=== PATIENT | male | born 1980 | race Two or more races ===

== ENCOUNTER 2025-09-29 16:33 | Inpatient (IN) | payer OTHER ==
[~2025-09-29] VITALS: Ht 172.7 cm; Wt 129.9 kg
[2025-09-29] MEDS: LORazepam 2MG/ML-1ML VIAL IV ONE (17:12)
[2025-09-29] MEDS: SODIUM CHLORIDE 0.9% 1,000 ML IV ONE ×2 (17:13→23:50)
[2025-09-29 17:17] LABS: Sodium 138 mmol/L (136-145)
[2025-09-29 17:18] LABS: Anion Gap 21 (5-15); Carbon Dioxide 21 mmol/L (20-31)
[2025-09-29 17:21] LABS: Calcium 8.4 mg/dL (8.7-10.4); Chloride 96 mmol/L (98-107); Potassium 3.4 mmol/L (3.5-5.1)
--- NOTE | 2025-09-29 17:21 | ED.PDOC ---
History of Present Illness HPI Comments 45 y/o morbidly obese M is BIBA for c/c of witnessed seizure. Per EMS personnel report, patient is a resident of alcohol rehabilitation facility and has a significant history of alcohol abuse and alcohol withdrawal seizures. Staff at facility called after patient had sudden onset of seizure-like activity that lasted 45-60 seconds in duration after consuming 1x shot of alcohol he was given, while being tapered off. On scene, patient was reported to remained poetical for 3-4x minutes prior to coming to and returning to his normal baseline. No reported trauma or signs of incontinence. Patient denies any further acute symptoms. Chief Complaint: Withdrawal Time Seen by MD: 16:45 Reviewed Notes: Nurses Notes, Car Unloader Helper Notes, Medications, Allergies Information Source: Patient, Emergency Med Personnel Mode of Arrival: EMS Severity: Moderate Timing: Hours Duration: Minutes Prehospital treatment: 12 Lead EKG, Accucheck, Online Tutor Past Medical History PAST MEDICAL HISTORY: Seizures Surgical History: Denies all surgeries Family History Family History: Unknown Social History Smoker: Non-Smoker Alcohol: Heavy Drugs: Denies Drug Use Lives In: Home Constitutional: denies: chills, diaphoresis, fatigue, fever, malaise, sweats, weakness, others EENTM: denies: blurred vision, double vision, ear bleeding, ear discharge, ear drainage, ear pain, ear ringing, eye pain, eye redness, hearing loss, mouth pain , mouth swelling, nasal discharge, nose bleeding, nose congestion, nose pain, photophobia, tearing, throat pain, throat swelling, voice changes, others Respiratory: denies: cough, hemoptysis, orthopnea, SOB at rest, shortness of breath, SOB with excertion, stridor, wheezing, others Cardiovascular: denies: chest pain, dizzy spells, diaphoresis, Dyspnea on exertion, edema, irregular heart beat, left arm pain, lightheadedness, palpitations, PND, syncope, others Gastrointestinal: denies: abdomen distended, abdominal pain, blood streaked bowels, constipated, diarrhea, dysphagia, difficulty swallowing, hematemesis, melena, nausea, poor appetite, poor fluid intake, rectal bleeding, rectal pain, vomiting, others Genitourinary: denies: burning, dysuria, flank pain, frequency, hematuria, incontinence, penile discharge, penile sore, pain, testicle pain, testicle swelling, urgency, others Neurological: reports: seizure; denies: dizziness, fainting, headache, left sided numbness, left sided weakness, numbness, paresthesia, pre-existing deficit, right sided numbness, right sided weakness, speech problems, tingling, tremors, weakness, others Musculoskeletal: denies: back pain, gout, joint pain, joint swelling, muscle pain, muscle stiffness, neck pain, others Integumetry: denies: bruises, change in color, change in hair/nails, dryness, laceration, lesions, lumps, rash, wounds, others Allergic/Immunocompromised: denies: Difficulty Healing, Frequent Infections, Hives, Itching, others Hematologic/Lymphatic: denies: anemia, blood clots, easy bleeding, easy bruising, swollen glands, others Endocrine: denies: excessive hunger, excessive sweating, excessive thirst, excessive urination, flushing, intolerance to cold, intolerance to heat, unexplained weight gain, unexplained weight loss, others Psychiatric: denies: anxiety, bipolar disorder, depression, hopeless, panic disorder, schizophrenia, sleepless, suicidal, others All Other Systems: Reviewed and Negative Physical Exam General Appearance: Moderate Distress, Other (The patient has alcohol on the breath) HEENT: Pharynx Normal, TMs Normal Neck: Full Range of Motion, Non-Tender, Normal, Normal Inspection Respiratory: Chest Non-Tender, Lungs Clear, No Accessory Muscle Use, No Respiratory Distress, Normal Breath Sounds Cardiovascular: No Edema, No JVD, No Murmur, No Gallop, Normal Peripheral Pulses, Regular Rate/Rhythm Breast Exam: Deferred Gastrointestinal: No Organomegaly, Non Tender, No Pulsatile Mass, Normal Bowel Sounds, Soft Genitalia: Deferred Pelvic: Deferred Rectal: Deferred Extremities: No calf tenderness, Normal capillary refill, No pedal edema Musculoskeletal : Apperance: Normal Neurologic: strategic sourcing consultant II-XII nml as Tested, Motor Weakness, Normal Affect, Normal Mood, No Sensory Deficits Cerebellar Function: Normal Reflexes: Normal Skin: Dry, Normal Color, Warm Lymphatic: No Adenopathy Was a procedure done? Was a procedure done?: No Differential Dx Considerations may include: alcohol withdrawal seizures, substance abuse, substance dependency, electrolyte imbalance, dehydration, among others X-Ray, Labs, Meds, VS Vital Signs Date Time Temp Pulse Resp B/P (MAP) Pulse Ox O2 Delivery O2 Flow Rate FiO2 09/29/25 16:38 98.9 93 18 151/95 93 98.9 Lab Test 09/29/25 16:58 Range/Units Sodium Level 138 136-145 mmol/L Potassium Level 3.4 L 3.5-5.1 mmol/L Chloride Level 96 L 98-107 mmol/L Carbon Dioxide Level 21 20-31 mmol/L Anion Gap 21 H 5-15 Blood Urea Nitrogen 5 L 9-23 mg/dL Creatinine 0.96 0.700-1.30 mg/dL Glomerular Filtration Rate Calc 100 >90 mL/min BUN/Creatinine Ratio 5.2 L 10.0-20.0 Serum Glucose 101 74-106 mg/dL Calcium Level 8.4 L 8.7-10.4 mg/dL Plasma/Serum Blood Alcohol 397.2 H <10 mg/dL Current Medications Medications (Trade) Dose Ordered Sig/Zahraa Route Start Time Stop Time Status Last Admin Sodium Chloride 1,000 ml @ 1,000 mls/hr Q1H ONCE IV 09/29/25 17:00 09/29/25 17:59 09/29/25 17:13 Lorazepam (Ativan Inj) 1 mg ONCE ONCE IV 09/29/25 17:00 09/29/25 17:01 DC 09/29/25 17:12 IV Hep-Lock was established The patient was given a 1 L bolus of normal saline The patient was given Ativan 1 mg IV push The alcohol level is 397.2 The chemistry panel is within normal limits Seizure precautions were placed on this patient The patient will be signed out to Dr. Plata Time of 1ST Reevaluation: 17:15 Reevaluation 1ST: Unchanged Patient Education/Counseling: Diagnosis, Treatment, Prognosis Family Education/Counseling: No Family Present SEPSIS Sepsis Screen Date sepsis recognized/suspect: Sep 29, 2025 Time Sepsis recognized/suspect: 1637 Recent Procedure: No On Antibiotic Therapy: No Respiratory Rate >20: No Heart Rate >90: Yes Temp<36 C (96.8 F) or >38.3 C: No SBP <90 or MAP <65 mmHG: No New Acute Mental Status Change: No Is the patient on CPAP, BIPAP,: No Physician Orders Heplock Iv (09/29/25 16:49) Online Tutor (09/29/25 16:49) Blood Pressure (09/29/25 16:49) Pulse Oximetry (09/29/25 16:49) Sodium Chloride 0.9% (09/29/25 17:00) Drug Screen (09/29/25 16:49) Vital Signs Date Time Temp Pulse Resp B/P (MAP) Pulse Ox O2 Delivery O2 Flow Rate FiO2 09/29/25 16:38 98.9 93 18 151/95 93 98.9 Medications Medications Dose Ordered Sig/Zahraa Route Start Time Stop Time Status Last Admin Dose Admin Lorazepam 1 mg ONCE ONCE IV 09/29/25 17:00 09/29/25 17:01 DC 09/29/25 17:12 Sodium Chloride 1,000 ml @ 1,000 mls/hr Q1H ONCE IV 09/29/25 17:00 09/29/25 17:59 09/29/25 17:13 Departure 1 Departure Time of Disposition: 17:47 Impression: Primary Impression: Alcohol withdrawal seizure Qualified Codes: F10.930 - Alcohol use, unspecified with withdrawal, uncomplicated; R56.9 - Unspecified convulsions Additional Impression: Alcohol intoxication Qualified Codes: F10.920 - Alcohol use, unspecified with intoxication, uncomplicated Disposition: 30 STILL A PATIENT Condition: Fair Critical Care Note Critical Care Time?: No Stability Stability form required: No Heart Score Heart Score: Heart Score Response (Comments) Value History N/A 0 EKG N/A 0 Age N/A 0 Risk Factors N/A 0 Troponin N/A 0 Total 0 I personally scribed for KATLIN VICTORIA MD ([email or web address]) on 09/29/25 at 17:21. Electronically submitted by Salomón Easley ([email or web address]). KATLIN VICTORIA MD Sep 29, 2025 17:21
[2025-09-29 17:23] LABS: Glucose 101 mg/dL (74-106)
[2025-09-29 17:24] LABS: BUN/Creatinine Ratio 5.2 (10.0-20.0); Blood Urea Nitrogen 5 mg/dL (9-23)
[2025-09-29] MEDS: fentaNYL CITRATE 100 MCG/2 ML VL ONE (19:22)
[2025-09-29 19:30] VITALS: PULSE 91; RESP 20; O2SAT 95
[2025-09-29] MEDS: ONDANSETRON HCL 4 MG/2 ML VIAL IV ONE ×2 (19:52→23:50)
[2025-09-29] MEDS: ONDANSETRON HCL 4 MG/2 ML VIAL ONE (19:53)
[2025-09-29] MEDS: THIAMINE HCL 100 MG TAB PO ONE (23:50)
[2025-09-30 00:02] LABS: Hematocrit 40.4 % (41.0-53.0); Hemoglobin 13.6 g/dL (13.5-17.5); Mean Corpuscular Hemoglobin 31.2 pg (28.0-32.0); Mean Corpuscular Volume 92.6 fL (80.0-100.0); Nucleated Red Blood Cells % 0.4 %
[2025-09-30 01:25] LABS: Lactic Acid w/Reflex 6.1 mmol/L (0.4-2.0)
[2025-09-30 01:34] LABS: Magnesium 1.3 mg/dL (1.6-2.6)
[2025-09-30] MEDS: SODIUM CHLORIDE 0.9% 1,000 ML IV ONE ×2 (01:49→04:33)
[2025-09-30] MEDS: MAGNESIUM SULFATE 1GM/100ML 100 ML IV ONE ×2 (01:49→05:35)
[2025-09-30] MEDS: LORazepam 2MG/ML-1ML VIAL IV ONE (01:49)
[2025-09-30 02:51] LABS: Amphetamine Screen, Urine Neg (NEGATIVE); Barbiturate Scree,Urine Neg (NEGATIVE); Benzodiazephine Screen, Urine Neg (NEGATIVE); Cannabinoid Screen, Urine Neg (NEGATIVE); Cocaine Screen, Urine Neg (NEGATIVE); Opiate Scree,Urine Neg (NEGATIVE); Phencyclidine Screen, Urine Neg (NEGATIVE)
[2025-09-30] MEDS ORDERED: HYDROmorphone HCL 2 MG/ML VL/or syr IV PRN (03:15)
[2025-09-30] MEDS: LACTATED RINGER'S 2,000 ML IV ONE (03:26)
--- NOTE | 2025-09-30 03:27 | DVHHPRES ---
History of Present Illness Resident Creating Document: SHADIA DANIELLE History of Present Illness Patient is a 45-year-old male with past medical history of alcohol abuse and alcohol withdrawal seizures, presented to [facility] ED with complaint of alcohol withdrawal. The patient reports a history of heavy alcohol use for over 20 years. He recently quit drinking about 14 months, but 2 months ago, following a divorce, he resumed alcohol consumption. This patient is a resident of an alcohol rehabilitation facility. Facility staff called after the patient experienced sudden onset of seizure-like activity lasting approximately 45-60 seconds following consumption of one shot of alcohol, which was given as part of a tapering regimen. On scene, the patient reportedly remained postictal for 3-4 minutes before regaining consciousness and returning to baseline. No trauma or signs of incontinence were noted. The patient denies any additional acute symptoms. On evaluation in the ED, patient is afebrile, tachycardia and hypotensive (139/99 mmHg). Initial labs show significant WBC 3, platelet 70, hypokalemia, magnesium 1.3, lactic acid 6.1 and anion gap 21. The patient was placed NPO, started on IV antibiotics and IV fluids. Patient is admitted for further evaluation and management. Past Medical History alcohol abuse, alcohol withdrawal seizures Past Surgical History: None Family History: None Smoke: # pack years ALCOHOL: heavy Drugs: None Lives: Other Review of Systems Review of Systems Constitutional: Fatigue, headache, dizziness Eyes: No Pain, No Vision change, No Conjunctivae inflammation, No Eyelid inflammation, No Other, Redness ENT: No Ear pain, No Ear discharge, No Nose pain, No Nose discharge, No Nose congestion, No Mouth pain, No Mouth swelling, No Throat pain, No Throat swelling, No Other Cardiovascular: No Chest Pain, Palpitations, No Orthopnea, No Paroxysmal No Dyspnea, No Edema, No Lt Headedness, No Other Respiratory: No Cough, No Dry, No Shortness of breath, No SOB with exertion, No Wheezing, No Hemoptysis, No Pleuritic Pain, No Sputum, No Other Gastrointestinal: Nausea, Vomiting, No Abdominal Pain, No Diarrhea, No Constipation, No Melena, No Hematochezia, No Other Genitourinary: No Dysuria, No Frequency, No Incontinence, No Hematuria, No Retention, No Other Musculoskeletal: No other, No neck pain, No shoulder pain, No arm pain, No back pain, No hand pain, No leg pain, No foot pain Skin: No Rash, No Lesions, No Jaundice, No Bruising, No Other Allergies: Coded Allergies: NO KNOWN ALLERGIES (Unverified , 09/29/25) Medications Current Medications Medications Dose Ordered Sig/Zahraa Route Start Time Stop Time Status Last Admin Dose Admin Cefepime HCl 50 ml @ 12.5 mls/hr Q8HR IV 09/30/25 06:00 Sodium Chloride 10 ml Q8HR IV 09/30/25 06:00 UNV Ondansetron HCl 4 mg Q4HP PRN IV 09/30/25 03:15 UNV Hydromorphone HCl 0.5 mg Q4HPRN PRN IV 09/30/25 03:15 UNV Thiamine HCl 100 mg DAILY IV 09/30/25 10:00 UNV Lorazepam 1 mg Q2H PRN IV 09/30/25 03:15 UNV Ceftriaxone Sodium 50 ml @ 100 mls/hr DAILY@09 IV 09/30/25 09:00 UNV Exam Vital Signs Vital Signs Date Time Temp Pulse Resp B/P (MAP) Pulse Ox O2 Delivery O2 Flow Rate FiO2 09/30/25 00:30 98.9 112 23 139/99 (112) 95 98.9 09/29/25 19:30 Room Air* 0 21 Exam General Appearance: Morbidly obese male. Cooperative. Well developed. Well nou rished. NAD Head Exam: Normal inspection Neck Exam: Normal inspection. Non-tender. Normal alignment Pulmonary/Respiratory: Chest non-tender. Clear bilateral breath sounds, no crackles, no wheezing. Cardiovascular/Chest: Regular rate and rhythm. No murmurs. No JVD. Peripheral Pulses: 2+ Radial (R). 2+ Radial (L). 2+ Pedal (R). 2+ Pedal (L) Abdominal Exam: Normal bowel sounds. Soft. normal abdomen, no visible veins, Nontender. No hepatospenomegaly. No masses Ankle Exam: Negative ankle edema Lower extremities: Negative lower extremity edema Neuro/Mental Status: A&O x4. Coherent. Postictal state resolved. Thoughts/Psych: Normal thought pattern. Appropriate mood and affect. Good judgement and insight Skin Exam: Normal inspection. Normal color. Warm. Dry Labs/Xrays Labs Test 09/30/25 01:43 09/29/25 23:59 09/29/25 23:50 09/29/25 16:58 Range/Units Lactic Acid Level 5.7 *H 0.4-2.0 mmol/L Magnesium Level 1.3 L 1.6-2.6 mg/dL Plasma/Serum Blood Alcohol 250.6 H <10 mg/dL Urine Opiates Screen Neg NEGATIVE Urine Fentanyl Screen Neg NEGATIVE Urine Barbiturates Screen Neg NEGATIVE Urine Phencyclidine Screen Neg NEGATIVE Urine Amphetamines Screen Neg NEGATIVE Urine Benzodiazepines Screen Neg NEGATIVE Urine Cocaine Screen Neg NEGATIVE Urine Cannabinoids Screen Neg NEGATIVE White Blood Count 3.0 L 4.4-10.8 10^3/uL Red Blood Count 4.37 L 4.5-5.90 10^6/uL Hemoglobin 13.6 13.5-17.5 g/dL Hematocrit 40.4 L 41.0-53.0 % Mean Corpuscular Volume 92.6 80.0-100.0 fL Mean Corpuscular Hemoglobin 31.2 28.0-32.0 pg Mean Corpuscular Hemoglobin Concent 33.8 32.0-36.0 g/dL Red Cell Distribution Width 16.4 H 11.8-14.3 % Platelet Count 70 L 140-450 10^3/uL Mean Platelet Volume 8.2 6.9-10.8 fL Neutrophils (%) (Auto) 74.6 37.0-80.0 % Lymphocytes (%) (Auto) 14.3 10.0-50.0 % Monocytes (%) (Auto) 9.6 0.0-12.0 % Eosinophils (%) (Auto) 0.1 0.0-7.0 % Basophils (%) (Auto) 1.4 0.0-2.0 % Neutrophils # (Auto) 2.2 1.6-8.6 10 ^3/uL Lymphocytes # (Auto) 0.4 0.4-5.4 10 ^3/uL Monocytes # (Auto) 0.3 0-1.3 10 ^3/uL Eosinophils # (Auto) 0 0-0.8 10 ^3/uL Basophils # (Auto) 0 0-0.2 10 ^3/uL Nucleated Red Blood Cells 0.4 % Sodium Level 138 136-145 mmol/L Potassium Level 3.4 L 3.5-5.1 mmol/L Chloride Level 96 L 98-107 mmol/L Carbon Dioxide Level 21 20-31 mmol/L Anion Gap 21 H 5-15 Blood Urea Nitrogen 5 L 9-23 mg/dL Creatinine 0.96 0.700-1.30 mg/dL Glomerular Filtration Rate Calc 100 >90 mL/min BUN/Creatinine Ratio 5.2 L 10.0-20.0 Serum Glucose 101 74-106 mg/dL Calcium Level 8.4 L 8.7-10.4 mg/dL B-Type Natriuretic Peptide 11.38 0-100 pg/mL SEPSIS Sepsis Screen Date sepsis recognized/suspect: Sep 29, 2025 Time Sepsis recognized/suspect: 1646 Recent Procedure: No On Antibiotic Therapy: No Respiratory Rate >20: No Heart Rate >90: Yes Temp<36 C (96.8 F) or >38.3 C: No SBP <90 or MAP <65 mmHG: No New Acute Mental Status Change: No Is the patient on CPAP, BIPAP,: No Physician Orders Chest Portable (09/30/25 02:46) Lactated Ringer's (09/30/25 03:00) Blood Culture (09/30/25 02:46) Cefepime 1gm/50ml (Maxipime 1gm/50ml) (09/30/25 06:00) Notify Md If Map <65 Or Bp<90 (09/30/25 02:46) If Map<65 Start Vasopressor (09/30/25 02:46) Sepsis Reassesment After Fluid (09/30/25 03:46) Admit (09/30/25 03:08) Allergies (09/30/25 03:08) Code Status (09/30/25 03:08) Sodium Chloride Lock (Saline Lock Ns) (09/30/25 06:00) Ondansetron Hcl (Zofran) (09/30/25 03:15) Complete Blood Count (09/30/25 04:00) Comprehensive Metabolic Panel (09/30/25 04:00) Npo (Nothing By Mouth) Diet (09/30/25 Breakfast) Echo 2d Mode Cardiac Dop (09/30/25 03:08) Condition: Fair (09/30/25 03:08) Stat Ekg For Chest Pain (09/30/25 03:08) Notify Md Of Changes From Base (09/30/25 03:08) Manager Managed Care For 24 Hours (09/30/25 03:08) Emergency Dysrhythmia Protocol (09/30/25 03:08) Rhythm Strips Once Every Shift (09/30/25 03:08) Hydromorphone Injection (Dilaudid Inject (09/30/25 03:15) Magnesium (09/30/25 04:00) Urinalysis (09/30/25 03:08) Electrocardigram (09/30/25 03:08) Hepatic Panel (09/30/25 03:08) Sodium Chloride 0.9% (09/30/25 03:15) Thiamine Inj (09/30/25 10:00) Multiple Vitamin Tablet (Mvi Tab) (09/30/25 03:15) Folic Acid Tablet (09/30/25 03:15) Lorazepam 2mg/Ml Inj (Ativan Inj) (09/30/25 03:15) Etoh Withdrawal Assessment (09/30/25 03:08) Etoh Withdrawal Assessment NOW (09/30/25 03:08) Urine Bacterial Culture (09/30/25 03:08) Ceftriaxone 1gm/50ml (Rocephin) (09/30/25 09:00) Ceftriaxone 1gm/50ml (Rocephin) (09/30/25 03:15) Vital Signs Date Time Temp Pulse Resp B/P (MAP) Pulse Ox O2 Delivery O2 Flow Rate FiO2 09/30/25 00:30 98.9 112 23 139/99 (112) 95 98.9 09/29/25 22:47 100 18 145/93 (110) 96 09/29/25 20:43 99 20 148/88 (108) 95 09/29/25 19:30 91 20 95 Room Air* 0 21 Laboratory Tests Test 09/29/25 16:58 09/29/25 23:59 09/30/25 01:43 White Blood Count 3.0 10^3/uL (4.4-10.8) L Lactic Acid Level 6.1 mmol/L (0.4-2.0) *H 5.7 mmol/L (0.4-2.0) *H Medications Medications Dose Ordered Sig/Zahraa Route Start Time Stop Time Status Last Admin Dose Admin Lorazepam 1 mg ONCE ONCE IV 09/29/25 17:00 09/29/25 17:01 DC 09/29/25 17:12 1 MG Lorazepam 1 mg ONCE ONCE IV 09/30/25 01:45 09/30/25 01:46 DC 09/30/25 01:49 1 MG Magnesium Sulfate/ Dextrose 100 ml @ 100 mls/hr ONCE ONCE IV 09/30/25 01:45 09/30/25 02:44 DC 09/30/25 01:49 100 MLS/HR Ondansetron HCl 4 mg ONCE ONCE IV 09/29/25 20:00 09/29/25 20:01 DC 09/29/25 19:52 4 MG Ondansetron HCl 4 mg ONCE ONCE IV 09/29/25 23:45 09/29/25 23:46 DC 09/29/25 23:50 4 MG Sodium Chloride 1,000 ml @ 1,000 mls/hr Q1H ONCE IV 09/29/25 17:00 09/29/25 17:59 DC 09/29/25 17:13 1,000 MLS/HR Sodium Chloride 1,000 ml @ 1,000 mls/hr Q1H ONCE IV 09/29/25 23:45 09/30/25 00:44 DC 09/29/25 23:50 1,000 MLS/HR Sodium Chloride 1,000 ml @ 1,000 mls/hr Q1H ONCE IV 09/30/25 01:30 09/30/25 02:29 DC 09/30/25 01:49 1,000 MLS/HR Thiamine HCl 100 mg ONCE ONCE PO 09/29/25 23:45 09/29/25 23:46 DC 09/29/25 23:50 100 MG Assessment/Plan Assessment/Plan Alcohol intoxication Alcohol withdrawal Sepsis due to unknown origin Chest X-ray: No acute cardiopulmonary process identified. Serum alcohol: 397.2 > 250.6 CIWA score: 24 Cefepime 2 GM IV q8h Lorazepam 1 MG IV q2h prn Thiamine 100 MG IV daily Folic acid Magnesium rider IV once MVI 1 TAB Zofran 4 MG IV q4h IV NS 150 MLS/Hr one IV NS 1,000 MLS/HR one Hepatic panel UA and UDS Mg Echocardiogram ordered EKG Blood culture Urine bacterial culture pain management with Dilaudid 0.5 MG IV q4h prn Afib with RVR secondary to alcohol withdrawal evidence in EKG 1 dose Diltiazem Monitor tele for rhythm and rate Hypokalemia Potassium Effervesent Tab 50 MEQ PO once Hypomagnesemia Monitor Magnesium rider IV once Diet: NPO Goals of care: Full code, discussed for >30 minutes on 09/30/25 Plan discussed with patient Plan discussed with Dr. Hightower Plan discussed with: Patient My Orders Orders - SHADIA DANIELLE RESIDENT Procedure Category Date Status Time Admit ADMIT 09/30/25 Transmitted 03:08 Allergies BLANCO 09/30/25 In Process 03:08 Code Status CODE 09/30/25 Transmitted 03:08 Sodium Chloride Lock PHA 09/30/25 Logged (Saline Lock Ns) 06:00 Ondansetron Hcl PHA 09/30/25 Logged (Zofran) 03:15 Complete Blood Count LAB 09/30/25 Logged 04:00 Comprehensive LAB 09/30/25 Logged Metabolic Panel 04:00 Npo (Nothing By DIET 09/30/25 Transmitted Mouth) Diet Breakfast Echo 2d Mode Cardiac US 09/30/25 Logged DOP 03:08 Condition: Fair [facility] 09/30/25 In Process 03:08 Stat Ekg For Chest [facility] 09/30/25 In Process Pain 03:08 Notify Md Of Changes [facility] 09/30/25 In Process From Base 03:08 Manager Managed Care For [facility] 09/30/25 In Process 24 Hours 03:08 Emergency Dysrhythmia [facility] 09/30/25 In Process Protocol 03:08 Rhythm Strips Once [facility] 09/30/25 In Process Every Shift 03:08 Hydromorphone PHA 09/30/25 Logged Injection (Dilaudid 03:15 Magnesium LAB 09/30/25 Logged 04:00 Urinalysis LAB 09/30/25 Logged 03:08 Electrocardigram EKG 09/30/25 Logged 03:08 Hepatic Panel LAB 09/30/25 Logged 03:08 Sodium Chloride 0.9% PHA 09/30/25 Logged 03:15 Thiamine Inj PHA 09/30/25 Logged 10:00 Multiple Vitamin PHA 09/30/25 Logged Tablet (Mvi Tab) 03:15 Folic Acid Tablet PHA 09/30/25 Logged 03:15 Lorazepam 2mg/Ml Inj PHA 09/30/25 Logged (Ativan Inj) 03:15 Etoh Withdrawal BLANCO 09/30/25 In Process Assessment 03:08 Etoh Withdrawal BLANCO 09/30/25 In Process Assessment 03:08 Urine Bacterial VLADIMIR 09/30/25 Logged Culture 03:08 Ceftriaxone 1gm/50ml PHA 09/30/25 Logged (Rocephin) 09:00 Ceftriaxone 1gm/50ml PHA 09/30/25 Logged (Rocephin) 03:15 Date of Service: Sep 30, 2025 Billing Provider: KARLI HIGHTOWER MD Common Visit Codes: [id number] INP/OBS CARE (HIGH) Secondary Visit Codes: [id number] CARE PLAN 30 MINUTES SHADIA DANIELLE RESIDENT Sep 30, 2025 03:27 VERO SYKES RESIDENT Sep 30, 2025 05:32
--- NOTE | 2025-09-30 03:28 | DVH ---
MEDICAL RECORDS NUMBER: [id number] PROCEDURE: XY CHEST PORTABLE DATE: 09/30/2025 02:59 AM HISTORY: sepsis Views:1 COMPARISON: None FINDINGS/IMPRESSION: Lungs: Allowing for overlying soft tissues, the lungs appear grossly clear. Mediastinum: Mediastinal structures appear unremarkable... Skeletal: The skeletal structures appear unremarkable.
[2025-09-30] MEDS: MULTIPLE VITAMIN TAB PO ONE (03:57)
[2025-09-30] MEDS: FOLIC ACID 1 MG TAB PO ONE (03:57)
[2025-09-30] MEDS: POTASSIUM EFFERVESENT TAB 25 MEQ PO ONE (04:17)
[2025-09-30] MEDS: LORazepam 2MG/ML-1ML VIAL IV PRN (04:33)
[2025-09-30] MEDS: D5W/SOD CHLO 0.9% 1,000 ML IV ONE (05:07)
[2025-09-30] MEDS: dilTIAZem 25 MG/5 ML VIAL IV ONE (05:42)
[2025-09-30] MEDS ORDERED: SODIUM CHLOR 0.9% PF (SALINE LOCK) 10ML VIAL/SYR IV SCH (06:00)
--- NOTE | 2025-09-30 06:05 | ECG ---
[facility] Test Date: 2025-09-30 Test Time: 05:23:52 Pat Name: RIANA MARTINES Department: ED Room: 0206T Gender: M Hospitality Manager: stacie : 1980 Requested By: SHADIA YOU Order Number: [id number] Reading MD: Beto Pennington Measurements Intervals [place] Rate: 152 P: 0 UT: 0 QRS: 40 QRSD: 91 T: -7 QT: 292 QTc: 465 Interpretive Statements Atrial fibrillation Borderline T abnormalities, inferior leads Electronically Signed On 10-03-2025 17:49:42 PST by Beto Pennington Please click the below link to view image of tracing.
[2025-09-30] MEDS: CEFEPIME 1GM/50ML 50 ML IV SCH (06:12)
[2025-09-30] MEDS: MORPHINE SULFATE INJ 2 MG/ml SYRG IM ONE (06:26)
[2025-09-30 06:30] LABS: Nucleated Red Blood Cells % 0.1 %
[2025-09-30 06:33] LABS: Hematocrit 34.7 % (41.0-53.0); Hemoglobin 12.1 g/dL (13.5-17.5); Mean Corpuscular Hemoglobin 32.7 pg (28.0-32.0); Mean Corpuscular Volume 93.7 fL (80.0-100.0)
[2025-09-30 06:44] LABS: Anion Gap 23 (5-15); BUN/Creatinine Ratio 6.5 (10.0-20.0); Glucose 74 mg/dL (74-106); Potassium 3.8 mmol/L (3.5-5.1); Total Protein 6.9 g/dL (5.7-8.2)
[2025-09-30 06:45] LABS: Albumin 3.6 g/dL (3.2-4.8)
[2025-09-30 06:46] LABS: Alanine Aminotransferase 88 U/L (7-40); Alanine Aminotransferase 89.0 U/L (7-40); Alkaline Phosphatase 127 U/L (46-116); Alkaline Phosphatase 127.0 U/L (46-116); Bilirubin, Total 4.2 mg/dL (0.2-1.0); Blood Urea Nitrogen 6 mg/dL (9-23); Calcium 7.8 mg/dL (8.7-10.4); Carbon Dioxide 15 mmol/L (20-31); Chloride 97 mmol/L (98-107); Magnesium 1.5 mg/dL (1.6-2.6); Sodium 135 mmol/L (136-145); Total Protein 6.9 g/dL (5.7-8.2)
[2025-09-30 06:47] LABS: Albumin 3.6 g/dL (3.2-4.8)
[2025-09-30 06:49] LABS: Bilirubin, Direct 2.8 mg/dL (<0.3); Bilirubin, Total 4.3 mg/dL (0.2-1.0); Lactic Acid w/Reflex 6.5 mmol/L (0.4-2.0)
[2025-09-30] MEDS: METOPROLOL TARTRATE 1MG/1ML-5ML VIAL IV ONE (07:12)
[2025-09-30 08:00] VITALS: PULSE 102; RESP 22; O2SAT 90
[2025-09-30] MEDS: THIAMINE 100mg/ml INJ (200mg/2ml VIAL) IV SCH (11:20)
[2025-09-30] MEDS: FOLIC ACID 1 MG TAB PO SCH (11:21)
[2025-09-30] MEDS: ONDANSETRON HCL 4 MG/2 ML VIAL IV PRN (14:30)
--- NOTE | 2025-09-30 14:52 | DVHPN2 ---
Objective Vitals Vital Signs Date Time Temp Pulse Resp B/P (MAP) Pulse Ox O2 Delivery O2 Flow Rate FiO2 09/30/25 08:12 102 134/89 09/30/25 08:00 98.3 22 90 98.3 09/30/25 08:00 Room Air* 0 21 Intake/Output Intake and Output 09/30/25 07:00 Intake Total 1100 ml Balance 1100 ml Intake IV Total 1100 ml Medications Current Medications Medications Dose Ordered Sig/Zahraa Route Start Time Stop Time Status Last Admin Dose Admin Cefepime HCl 50 ml @ 12.5 mls/hr Q8HR IV 09/30/25 06:00 09/30/25 14:29 12.5 MLS/HR Ondansetron HCl 4 mg Q4HP PRN IV 09/30/25 03:15 09/30/25 14:30 4 MG Hydromorphone HCl 0.5 mg Q4HPRN PRN IV 09/30/25 03:15 Thiamine HCl 100 mg DAILY IV 09/30/25 10:00 09/30/25 11:20 100 MG Lorazepam 1 mg Q2H PRN IV 09/30/25 03:15 09/30/25 14:30 1 MG Folic Acid 1 mg DAILY PO 09/30/25 10:00 09/30/25 11:21 1 MG Chlordiazepoxide HCl 50 mg Q8H PO 09/30/25 04:30 09/30/25 20:31 09/30/25 14:29 50 MG Chlordiazepoxide HCl 50 mg Q12HR PO 10/01/25 10:00 10/01/25 22:01 Chlordiazepoxide HCl 25 mg Q12HR PO 10/02/25 10:00 10/02/25 22:01 Chlordiazepoxide HCl 25 mg QAM PO 10/03/25 07:00 10/03/25 07:01 Laboratory Results Laboratory Tests 09/30/25 06:02 Chemistry Test 09/29/25 16:58 09/29/25 23:59 09/30/25 06:02 Calcium Level 8.4 mg/dL (8.7-10.4) L 7.8 mg/dL (8.7-10.4) L Magnesium Level 1.3 mg/dL (1.6-2.6) L 1.5 mg/dL (1.6-2.6) L Albumin 3.6 g/dL (3.2-4.8) Total Protein 6.9 g/dL (5.7-8.2) Cardiac Markers Test 09/29/25 16:58 B-Type Natriuretic Peptide 11.38 pg/mL (0-100) LFT Test 09/30/25 06:02 Alanine Aminotransferase (ALT) 88 U/L (7-40) H Alkaline Phosphatase 127 U/L (46-116) H Aspartate Amino Transferase (AST) 307 U/L (13-40) H Direct Bilirubin 2.8 mg/dL (<0.3) H Total Bilirubin 4.2 mg/dL (0.2-1.0) H MADINA DUVALL MD Sep 30, 2025 14:52
--- NOTE | 2025-09-30 15:01 | DVHINCON2 ---
Date Seen: Sep 30, 2025 Referring Physician You Reason for Consultation Atrial Fibrillation History of Present Illness 45-year-old male with PMH for ETOH abuse, previous seizures during withdrawal presents to the hospital with alcohol withdrawal. Patient states that he has been sober for a while though is going through divorce and started drinking heavily again and was checking himself into a rehab facility when he started having increased withdrawal symptoms and was referred to come to the hospital. Patient denies any chest pain, palpitations. Upon evaluation in the ER patient had elevated heart rate on EKG review patient with shown atrial fibrillation with RVR at 152 beats per minute. Patient was given dose of diltiazem which improved heart rate patient ended up converting back to sinus tachycardia. Patient also found to have hypomagnesemia of with mg of 1.5, lactic acid trending 5.7, 6.5, 4.5. Elevated LFTs. Past Medical History As stated above Past Surgical History Denies previous cardiac surgeries Social History Heavy recurrent ETOH abuse. Denies illicit drug use or smoking tobacco. Allergies: Coded Allergies: NO KNOWN ALLERGIES (Unverified , 09/29/25) Current Medications Current Medications Medications (Trade) Dose Ordered Sig/Zahraa Route PRN Reason Start Time Stop Time Status Last Admin Cefepime HCl 50 ml @ 12.5 mls/hr Q8HR IV 09/30/25 06:00 09/30/25 14:29 Sodium Chloride (Saline Lock Ns) 10 ml Q8HR IV 09/30/25 06:00 09/30/25 05:09 DC Ondansetron HCl (Zofran) 4 mg Q4HP PRN IV NAUSEA / VOMITING 09/30/25 03:15 09/30/25 14:30 Hydromorphone HCl (Dilaudid Injection) 0.5 mg Q4HPRN PRN IV SEVERE PAIN (7-10 PAIN SCALE) 09/30/25 03:15 Thiamine HCl 100 mg DAILY IV 09/30/25 10:00 09/30/25 11:20 Lorazepam (Ativan Inj) 1 mg Q2H PRN IV ALCOHOL WITHDRAWAL SYMPTOMS 09/30/25 03:15 09/30/25 14:30 Ceftriaxone Sodium 50 ml @ 100 mls/hr DAILY@09 IV 09/30/25 09:00 09/30/25 03:47 DC Folic Acid 1 mg DAILY PO 09/30/25 10:00 09/30/25 11:21 Chlordiazepoxide HCl (Librium Capsule) 50 mg Q8H PO 09/30/25 04:30 09/30/25 20:31 09/30/25 14:29 Chlordiazepoxide HCl (Librium Capsule) 50 mg Q12HR PO 10/01/25 10:00 10/01/25 22:01 Chlordiazepoxide HCl (Librium Capsule) 25 mg Q12HR PO 10/02/25 10:00 10/02/25 22:01 Chlordiazepoxide HCl (Librium Capsule) 25 mg QAM PO 10/03/25 07:00 10/03/25 07:01 Review of Systems Constitutional: No: Fever, Chills, Sweats, Weakness, Malaise, Other Eyes: No: Pain, Vision change, Conjunctivae inflammation, Eyelid inflammation, Other, Redness ENT: No: Ear pain, Ear discharge, Nose pain, Nose discharge, Nose congestion, Mouth pain, Mouth swelling, Throat pain, Throat swelling, Other Respiratory: No: Cough, Dry, Shortness of breath, SOB with exertion, Wheezing, Hemoptysis, Pleuritic Pain, Sputum, Wheezing, Other Cardiovascular: ; No: Chest Pain Palpitations, Orthopnea, Paroxysmal Noc. Dyspnea, Edema, Lt Headedness, Other Gastrointestinal: No: Nausea, Vomiting, Abdominal Pain, Diarrhea, Constipation, Melena, Hematochezia, Other Genitourinary: No Dysuria, No Frequency, No Incontinence, No Hematuria, No Retention, No Other Musculoskeletal: neck pain; No: other, shoulder pain, arm pain, back pain, hand pain, leg pain, foot pain Skin: No: Rash, Lesions, Jaundice, Bruising, Other Neurological: Other (Dizziness, headache.); No: Weakness, Numbness, Incoordination, Change in speech, Confusion, Seizures Vital Signs Vital Signs Date Time Temp Pulse Resp B/P (MAP) Pulse Ox O2 Delivery O2 Flow Rate FiO2 09/30/25 08:12 102 134/89 09/30/25 08:00 98.3 22 90 98.3 09/30/25 08:00 Room Air* 0 21 Physical Exam General appearance: Ill-appearing, in no acute distress. HEENT: Exam shows: Normocephalic, atraumatic, PERRLA, EOMI Neck: Supple, no bruits Chest: Equal chest excursion bilaterally. Breath sounds normal-no rales or wheezes. Heart: Rhythm: Regular /irregular rate; tachycardia no murmur or gallop Abdomen: Exam shows: Soft, nontender, nondistended Musculoskeletal: No clubbing, no cyanosis, no lower extremity edema Dermatology: Skin warm, moist. Neurological: Exam shows: Alert and oriented x3, normal speech Available prior records, labs, EKG, rhythm strips reviewed and interpreted Labs/Diagnostic Data Labs Test 09/30/25 08:42 09/30/25 06:02 09/29/25 23:59 09/29/25 23:50 Range/Units Lactic Acid Level 4.5 *H 0.4-2.0 mmol/L White Blood Count 3.4 L 4.4-10.8 10^3/uL Red Blood Count 3.70 L 4.5-5.90 10^6/uL Hemoglobin 12.1 L 13.5-17.5 g/dL Hematocrit 34.7 #L 41.0-53.0 % Mean Corpuscular Volume 93.7 80.0-100.0 fL Mean Corpuscular Hemoglobin 32.7 H 28.0-32.0 pg Mean Corpuscular Hemoglobin Concent 34.9 32.0-36.0 g/dL Red Cell Distribution Width 17.1 H 11.8-14.3 % Platelet Count 58 L 140-450 10^3/uL Mean Platelet Volume 8.0 6.9-10.8 fL Neutrophils (%) (Auto) 81.2 H 37.0-80.0 % Lymphocytes (%) (Auto) 10.9 10.0-50.0 % Monocytes (%) (Auto) 7.2 0.0-12.0 % Eosinophils (%) (Auto) 0.0 0.0-7.0 % Basophils (%) (Auto) 0.7 0.0-2.0 % Neutrophils # (Auto) 2.7 1.6-8.6 10 ^3/uL Lymphocytes # (Auto) 0.4 0.4-5.4 10 ^3/uL Monocytes # (Auto) 0.2 0-1.3 10 ^3/uL Eosinophils # (Auto) 0 0-0.8 10 ^3/uL Basophils # (Auto) 0 0-0.2 10 ^3/uL Nucleated Red Blood Cells 0.1 % Sodium Level 135 L 136-145 mmol/L Potassium Level 3.8 3.5-5.1 mmol/L Chloride Level 97 L 98-107 mmol/L Carbon Dioxide Level 15 L 20-31 mmol/L Anion Gap 23 H 5-15 Blood Urea Nitrogen 6 L 9-23 mg/dL Creatinine 0.92 0.700-1.30 mg/dL Glomerular Filtration Rate Calc 105 >90 mL/min BUN/Creatinine Ratio 6.5 L 10.0-20.0 Serum Glucose 74 74-106 mg/dL Calcium Level 7.8 L 8.7-10.4 mg/dL Magnesium Level 1.5 L 1.6-2.6 mg/dL Total Bilirubin 4.2 H 0.2-1.0 mg/dL Direct Bilirubin 2.8 H <0.3 mg/dL Aspartate Amino Transferase (AST) 307 H 13-40 U/L Alanine Aminotransferase (ALT) 88 H 7-40 U/L Alkaline Phosphatase 127 H 46-116 U/L Total Protein 6.9 5.7-8.2 g/dL Albumin 3.6 3.2-4.8 g/dL Plasma/Serum Blood Alcohol 250.6 H <10 mg/dL Urine Opiates Screen Neg NEGATIVE Urine Fentanyl Screen Neg NEGATIVE Urine Barbiturates Screen Neg NEGATIVE Urine Phencyclidine Screen Neg NEGATIVE Urine Amphetamines Screen Neg NEGATIVE Urine Benzodiazepines Screen Neg NEGATIVE Urine Cocaine Screen Neg NEGATIVE Urine Cannabinoids Screen Neg NEGATIVE Test 09/29/25 16:58 Range/Units B-Type Natriuretic Peptide 11.38 0-100 pg/mL Assessment * Episode of atrial fibrillation with RVR - converted back to sinus tachycardia, likely episodic in setting of alcohol withdrawal. Continue monitoring. Monitoring replace electrolytes keep K greater than 4 and mg greater than 2. Check echocardiogram. If recurrent decision to be made to started on anticoagulation therapy as patient has thrombocytopenia. * ETOH withdrawal, seizures-on CIWA protocol. Management per primary team. * Sinus tachycardia, HTN - continue monitoring, IV p.r.n. metoprolol. * Sepsis,- on IV antibiotics, blood cultures pending. Management per primary team. * Elevated LFTs - estimate per primary team. Case Discussed with Dr Mckeon. Continue telemetry monitoring. IV metoprolol as needed. Follow up echocardiogram. Critical care, time spent: 40 minutes This medical document was created using an electronic medical record system with voice recognition software and computerized dictation system. Although this document has been carefully reviewed, there might still be some phonetic and typographical errors. Occasional wrong-word or ``sound-alike substitutions may have occurred due to the inherent limitations of voice recognition software. These areas are purely typographical due to imperfections of the software programs and do not reflect any compromise in the patient's medical care. Please read the chart carefully and recognize, using context, where these substitutions have occurred. Thank you for allowing me to participate in the management of this patient. The treatment plan was discussed with and agreed upon by patient/family including requesting consultants and ordering of imaging/procedures. Plan discussed with: Patient NYHA Physical activity limitations: Class1(None)absent sob, Date of Service: Sep 30, 2025 Billing Provider: BART CASTRO Cardiology Common Codes: [id number] INP/OBS CARE (High), [id number] CARE 30-74 MIN BART CASTRO Sep 30, 2025 15:01
--- NOTE | 2025-09-30 15:55 | DVHSR ---
APPROVED REPORT EXAM: LIMITED Two-dimensional and M-mode echocardiogram with Doppler and color Doppler. Blood Pressure: 134/89 mmHg INDICATION Chest Pain RISK FACTORS Height: 5' 7", Weight: 260 DIMENSIONS LVDd 5.2 (3.8-5.7cm) LA (2D) 3.8 (1.9-4.0cm) Aortic Root 3.5 (2.0-3.7cm) LVDs 3.7 (2.5-4.0cm) LA (MM) (1.9-4.0cm) Aortic Cusp Exc 2.0 (1.5-2.0cm) EF (%) 55.0 (55-70%) Rt. Atrium 3.8 (1.9-4.0cm) Asc. Aorta cm IVSd 0.9 (0.7-1.1cm) RV (D) (1.8-2.4cm) PWd 1.1 (0.7-1.1cm) Mitral Valve Mitral Mitral Stenosis E wave 0.70m/s MV Mean GR. mmHg A wave 0.80m/s MV Peak GR. mmHg E/A ratio 0.9 2D MVA cm2 Aortic Valve Aortic Valve Aortic Stenosis V1 1.20m/s AO Mean GR. 9mmHg V2 2.00m/s AO Peak GR. 16mmHg LVOT Diameter 2.6 (1.8-2.4cm) Doppler HANK 3.18cm2 Pulmonic Valve V2 1.10m/s Other Information Quality : Technically Limited Rhythm : Technically limited study due to body habitus, patient puking. Conclusion MODERATELY DILATED RV AND RA DYSKINESIS OF IVS HIGHLY SUGGEST CHRONIC OR ACUTE RV STRAIN PATTERN LV EF IS 60% AND IS NORMAL NORMAL VALVES NO EFFUSION
[2025-09-30 16:05] LABS: Urine Protein, UAD 2+ (Negative)
[2025-09-30 18:35] VITALS: PULSE 108; RESP 20; O2SAT 94
[2025-09-30 18:36] VITALS: BP 119/78; PULSE 108; RESP 20; TEMP 98.4; O2SAT 94
[2025-09-30 20:28] VITALS: PULSE 101
[2025-09-30 21:00] VITALS: BP 140/91; PULSE 116; RESP 20; TEMP 100; O2SAT 97
--- NOTE | 2025-09-30 22:50 | DVHINCON2 ---
Date Seen: Sep 30, 2025 Referring Physician You Reason for Consultation Atrial Fibrillation History of Present Illness This is a 45-year-old male with a PMH of ETOH abuse, previous seizures during withdrawal presents to the hospital with alcohol withdrawal. Patient states that he has been sober for a while though is going through divorce and started drinking heavily again and was checking himself into a rehab facility when he started having increased withdrawal symptoms and was referred to come to the hospital. Patient denies any chest pain, palpitations. Upon evaluation in the ER patient had elevated heart rate on EKG review patient with shown atrial fibrillation with RVR at 152 beats per minute. Patient was given dose of diltiazem which improved heart rate patient ended up converting back to sinus tachycardia. Patient also found to have hypomagnesemia of with mg of 1.5, lactic acid trending 5.7, 6.5, 4.5. Elevated LFTs. Chest x-ray showed NAD. Patient was admitted to the hospital. I am asked to consult on this patient. Past Medical History As stated above Past Surgical History Denies previous cardiac surgeries Allergies: Coded Allergies: NO KNOWN ALLERGIES (Unverified , 09/29/25) Current Medications Current Medications Medications (Trade) Dose Ordered Sig/Zahraa Route PRN Reason Start Time Stop Time Status Last Admin Cefepime HCl 50 ml @ 12.5 mls/hr Q8HR IV 09/30/25 06:00 09/30/25 14:29 Sodium Chloride (Saline Lock Ns) 10 ml Q8HR IV 09/30/25 06:00 09/30/25 05:09 DC Ondansetron HCl (Zofran) 4 mg Q4HP PRN IV NAUSEA / VOMITING 09/30/25 03:15 09/30/25 14:30 Hydromorphone HCl (Dilaudid Injection) 0.5 mg Q4HPRN PRN IV SEVERE PAIN (7-10 PAIN SCALE) 09/30/25 03:15 Thiamine HCl 100 mg DAILY IV 09/30/25 10:00 09/30/25 11:20 Lorazepam (Ativan Inj) 1 mg Q2H PRN IV ALCOHOL WITHDRAWAL SYMPTOMS 09/30/25 03:15 09/30/25 14:30 Ceftriaxone Sodium 50 ml @ 100 mls/hr DAILY@09 IV 09/30/25 09:00 09/30/25 03:47 DC Folic Acid 1 mg DAILY PO 09/30/25 10:00 09/30/25 11:21 Chlordiazepoxide HCl (Librium Capsule) 50 mg Q8H PO 09/30/25 04:30 09/30/25 20:31 09/30/25 14:29 Chlordiazepoxide HCl (Librium Capsule) 50 mg Q12HR PO 10/01/25 10:00 10/01/25 22:01 Chlordiazepoxide HCl (Librium Capsule) 25 mg Q12HR PO 10/02/25 10:00 10/02/25 22:01 Chlordiazepoxide HCl (Librium Capsule) 25 mg QAM PO 10/03/25 07:00 10/03/25 07:01 Review of Systems Constitutional: No: Fever, Chills, Sweats, Weakness, Malaise, Other Eyes: No: Pain, Vision change, Conjunctivae inflammation, Eyelid inflammation, Other, Redness ENT: No: Ear pain, Ear discharge, Nose pain, Nose discharge, Nose congestion, Mouth pain, Mouth swelling, Throat pain, Throat swelling, Other Respiratory: No: Cough, Dry, Shortness of breath, SOB with exertion, Wheezing, Hemoptysis, Pleuritic Pain, Sputum, Wheezing, Other Cardiovascular: ; No: Chest Pain Palpitations, Orthopnea, Paroxysmal Noc. Dyspnea, Edema, Lt Headedness, Other Gastrointestinal: No: Nausea, Vomiting, Abdominal Pain, Diarrhea, Constipation, Melena, Hematochezia, Other Genitourinary: No Dysuria, No Frequency, No Incontinence, No Hematuria, No Retention, No Other Musculoskeletal: neck pain; No: other, shoulder pain, arm pain, back pain, hand pain, leg pain, foot pain Skin: No: Rash, Lesions, Jaundice, Bruising, Other Neurological: Other (Dizziness, headache.); No: Weakness, Numbness, Incoordination, Change in speech, Confusion, Seizures Vital Signs Vital Signs Date Time Temp Pulse Resp B/P (MAP) Pulse Ox O2 Delivery O2 Flow Rate FiO2 09/30/25 08:12 102 134/89 09/30/25 08:00 98.3 22 90 98.3 09/30/25 08:00 Room Air* 0 21 Physical Exam GENERAL: Alert and oriented x 3. Ill appearing. EYES: PERRL, EOMI. Anicteric. HENT: Moist mucous membranes. LUNGS: Clear to auscultation bilaterally. CARDIOVASCULAR: Irregular rate and rhythm. ABDOMEN: Soft, nontender and nondistended. EXTREMITIES: No edema. NEUROLOGIC: No focal neurological deficits. SKIN: Warm, dry. Labs/Diagnostic Data Labs Test 09/30/25 08:42 09/30/25 06:02 09/29/25 23:59 09/29/25 23:50 Range/Units Lactic Acid Level 4.5 *H 0.4-2.0 mmol/L White Blood Count 3.4 L 4.4-10.8 10^3/uL Red Blood Count 3.70 L 4.5-5.90 10^6/uL Hemoglobin 12.1 L 13.5-17.5 g/dL Hematocrit 34.7 #L 41.0-53.0 % Mean Corpuscular Volume 93.7 80.0-100.0 fL Mean Corpuscular Hemoglobin 32.7 H 28.0-32.0 pg Mean Corpuscular Hemoglobin Concent 34.9 32.0-36.0 g/dL Red Cell Distribution Width 17.1 H 11.8-14.3 % Platelet Count 58 L 140-450 10^3/uL Mean Platelet Volume 8.0 6.9-10.8 fL Neutrophils (%) (Auto) 81.2 H 37.0-80.0 % Lymphocytes (%) (Auto) 10.9 10.0-50.0 % Monocytes (%) (Auto) 7.2 0.0-12.0 % Eosinophils (%) (Auto) 0.0 0.0-7.0 % Basophils (%) (Auto) 0.7 0.0-2.0 % Neutrophils # (Auto) 2.7 1.6-8.6 10 ^3/uL Lymphocytes # (Auto) 0.4 0.4-5.4 10 ^3/uL Monocytes # (Auto) 0.2 0-1.3 10 ^3/uL Eosinophils # (Auto) 0 0-0.8 10 ^3/uL Basophils # (Auto) 0 0-0.2 10 ^3/uL Nucleated Red Blood Cells 0.1 % Sodium Level 135 L 136-145 mmol/L Potassium Level 3.8 3.5-5.1 mmol/L Chloride Level 97 L 98-107 mmol/L Carbon Dioxide Level 15 L 20-31 mmol/L Anion Gap 23 H 5-15 Blood Urea Nitrogen 6 L 9-23 mg/dL Creatinine 0.92 0.700-1.30 mg/dL Glomerular Filtration Rate Calc 105 >90 mL/min BUN/Creatinine Ratio 6.5 L 10.0-20.0 Serum Glucose 74 74-106 mg/dL Calcium Level 7.8 L 8.7-10.4 mg/dL Magnesium Level 1.5 L 1.6-2.6 mg/dL Total Bilirubin 4.2 H 0.2-1.0 mg/dL Direct Bilirubin 2.8 H <0.3 mg/dL Aspartate Amino Transferase (AST) 307 H 13-40 U/L Alanine Aminotransferase (ALT) 88 H 7-40 U/L Alkaline Phosphatase 127 H 46-116 U/L Total Protein 6.9 5.7-8.2 g/dL Albumin 3.6 3.2-4.8 g/dL Plasma/Serum Blood Alcohol 250.6 H <10 mg/dL Urine Opiates Screen Neg NEGATIVE Urine Fentanyl Screen Neg NEGATIVE Urine Barbiturates Screen Neg NEGATIVE Urine Phencyclidine Screen Neg NEGATIVE Urine Amphetamines Screen Neg NEGATIVE Urine Benzodiazepines Screen Neg NEGATIVE Urine Cocaine Screen Neg NEGATIVE Urine Cannabinoids Screen Neg NEGATIVE Test 09/29/25 16:58 Range/Units B-Type Natriuretic Peptide 11.38 0-100 pg/mL Assessment Episode of atrial fibrillation with RVR. ETOH withdrawal, seizures. Sinus tachycardia. HTN. Sepsis. Elevated LFTs. Plan/Recommendation I agree with your ongoing assessment and care of plan. Patient has been seen by Ahsan Corneoj NP on my behalf, him and I discussed the plan with the patient. Continue telemetry monitoring. IV metoprolol as needed. Follow up echocardiogram. The patient converted back to sinus tachycardia, likely episodic in setting of alcohol withdrawal. If recurrent decision to be made to started on anticoagulation therapy as patient has thrombocytopenia. Monitoring replace electrolytes keep K greater than 4 and mg greater than 2. Patient is on CIWA protocol. Converted back to sinus tachycardia, likely episodic in setting of alcohol withdrawal. Continue monitoring. Monitoring replace electrolytes keep K greater than 4 and mg greater than 2. Check echocardiogram. If recurrent decision to be made to started on anticoagulation therapy as patient has thrombocytopenia. On IV antibiotics. Blood cultures pending. Additional plan as per the hospital course. Plan discussed with: Patient NYHA Physical activity limitations: Class1(None)absent sob, Date of Service: Sep 30, 2025 Billing Provider: HALEY SAMPSON MD Cardiology Common Codes: [id number] INP/OBS CARE (High), [id number] CARE 30-74 MIN HALEY SAMPSON MD Sep 30, 2025 15:10
[2025-10-01] VITALS (8 sets, daily range): BP systolic 116–163; BP diastolic 86–99; PULSE 81–104; RESP 20–21; TEMP 97.6–98.8; O2SAT 95–100
[2025-10-01] MEDS: METOPROLOL TARTRATE 1MG/1ML-5ML VIAL IV SCH (10:26)
--- NOTE | 2025-10-01 13:36 | DVHPN2 ---
Consult Progress Note Subjective Patient reports: Feels better Objective vital signs Vital Sign Date Time Temp Pulse Resp B/P (MAP) Pulse Ox O2 Delivery O2 Flow Rate FiO2 10/01/25 13:00 94 116/86 10/01/25 12:09 98.3 20 97 98.3 10/01/25 08:00 Room Air* 0 21 Total Intake and Output 09/30/25 09/30/25 10/01/25 15:00 23:00 07:00 Intake Total 550.0 ml 350.0 ml 290 ml Balance 550.0 ml 350.0 ml 290 ml medications Current Medications Medications Dose Ordered Sig/Zahraa Route Start Time Stop Time Status Last Admin Dose Admin Cefepime HCl 50 ml @ 12.5 mls/hr Q8HR IV 09/30/25 06:00 10/01/25 05:33 12.5 MLS/HR Ondansetron HCl 4 mg Q4HP PRN IV 09/30/25 03:15 10/01/25 08:42 4 MG Hydromorphone HCl 0.5 mg Q4HPRN PRN IV 09/30/25 03:15 Thiamine HCl 100 mg DAILY IV 09/30/25 10:00 10/01/25 10:27 100 MG Lorazepam 1 mg Q2H PRN IV 09/30/25 03:15 10/01/25 08:42 1 MG Folic Acid 1 mg DAILY PO 09/30/25 10:00 10/01/25 10:26 1 MG Chlordiazepoxide HCl 50 mg Q12HR PO 10/01/25 10:00 10/01/25 22:01 10/01/25 10:26 50 MG Chlordiazepoxide HCl 25 mg Q12HR PO 10/02/25 10:00 10/02/25 22:01 Chlordiazepoxide HCl 25 mg QAM PO 10/03/25 07:00 10/03/25 07:01 Metoprolol Tartrate 5 mg Q6HP IV 10/01/25 12:00 10/01/25 10:26 5 MG Examination: CVS:Normal (Telemetry reviewed consistent with sinus tachycardia at 102 beats per minute.) laboratory and microbiology Laboratory Tests 09/30/25 06:02 Test 09/30/25 06:02 Range/Units Serum Glucose 74 74-106 mg/dL Problem List/Assessment/Plan Problem List/Assessment/Plan Assessment * Episode of atrial fibrillation with RVR - converted back to sinus tachycardia, likely episodic in setting of alcohol withdrawal. Continue monitoring. Monitoring replace electrolytes keep K greater than 4 and mg greater than 2. Normal EF on echo. If recurrent decision to be made to started on anticoagulation therapy as patient has thrombocytopenia. * ETOH withdrawal, seizures-on CIWA protocol. Management per primary team. * Sinus tachycardia, HTN - continue monitoring, IV p.r.n. metoprolol. * Sepsis,- on IV antibiotics, blood cultures pending. Management per primary team. * Elevated LFTs - estimate per primary team. * Suspected sleep apnea - echo showing moderately dilated RV and RA with dyskinesis of IVS. Recommend outpatient sleep study. Case Discussed with Dr Mckeon. No further episodes of irregular arrhythmias on tele review overnight. IV metoprolol p.r.n.. BP stable. Normal EF on echo. No further cardiac workup indicated at this time, we will continue monitoring as needed. Please call for any questions or concerns. Critical care, time spent: 40 minutes This medical document was created using an electronic medical record system with voice recognition software and computerized dictation system. Although this document has been carefully reviewed, there might still be some phonetic and typographical errors. Occasional wrong-word or ``sound-alike substitutions may have occurred due to the inherent limitations of voice recognition software. These areas are purely typographical due to imperfections of the software programs and do not reflect any compromise in the patient's medical care. Please read the chart carefully and recognize, using context, where these substitutions have occurred. Thank you for allowing me to participate in the management of this patient. The treatment plan was discussed with and agreed upon by patient/family including requesting consultants and ordering of imaging/procedures. Plan discussed with: Patient Date of Service: Oct 01, 2025 Billing Provider: BART CASTRO Common Visit Codes: [id number] INP/OBS CARE(HIGH) BART CASTRO Oct 01, 2025 13:36
--- NOTE | 2025-10-01 15:04 | DVHPN2 ---
Subjective The patient seen and examined at bedside. Still shaking. The patient is hungry. Reviewed: Care Plan, H&P, Labs, Medications, Previous Orders, Radiology Changes from previous H/P or p: No Changes Objective Vitals Vital Signs Date Time Temp Pulse Resp B/P (MAP) Pulse Ox O2 Delivery O2 Flow Rate FiO2 10/01/25 13:00 94 116/86 10/01/25 12:09 98.3 20 97 98.3 10/01/25 08:00 Room Air* 0 21 Intake/Output Intake and Output 10/01/25 07:00 Intake Total 1190.0 ml Balance 1190.0 ml Intake Oral 240 ml IV Total 950.0 ml # Bowel Movements 1 General Appearance: Alert, Oriented X3, Cooperative, No acute distress HEENT: Atraumatic, PERRLA, EOMI Neck: Supple Lungs: Clear to auscultation, Normal air movement Cardiovascular: Regular rate, Normal S1, Normal S2, No murmurs, Gallops, Rubs Abdomen: Normal bowel sounds, Soft, No tenderness Neuro: Cranial nerves 3-12 NL Psych/Mental Status: Mental status NL Medications Current Medications Medications Dose Ordered Sig/Zahraa Route Start Time Stop Time Status Last Admin Dose Admin Cefepime HCl 50 ml @ 12.5 mls/hr Q8HR IV 09/30/25 06:00 10/01/25 14:09 12.5 MLS/HR Ondansetron HCl 4 mg Q4HP PRN IV 09/30/25 03:15 10/01/25 08:42 4 MG Hydromorphone HCl 0.5 mg Q4HPRN PRN IV 09/30/25 03:15 Thiamine HCl 100 mg DAILY IV 09/30/25 10:00 10/01/25 10:27 100 MG Lorazepam 1 mg Q2H PRN IV 09/30/25 03:15 10/01/25 14:09 1 MG Folic Acid 1 mg DAILY PO 09/30/25 10:00 10/01/25 10:26 1 MG Chlordiazepoxide HCl 50 mg Q12HR PO 10/01/25 10:00 10/01/25 22:01 10/01/25 10:26 50 MG Chlordiazepoxide HCl 25 mg Q12HR PO 10/02/25 10:00 10/02/25 22:01 Chlordiazepoxide HCl 25 mg QAM PO 10/03/25 07:00 10/03/25 07:01 Metoprolol Tartrate 5 mg Q6HP IV 10/01/25 12:00 10/01/25 10:26 5 MG Laboratory Results Laboratory Tests 09/30/25 06:02 Urinalysis Test 09/29/25 23:50 Urine Color Dark-yellow (Yellow) Urine Clarity Clear (Clear) Urine pH 6.0 (5.0-9.0) Urine Specific [place] 1.025 (1.001-1.035) Urine Protein 2+ (Negative) H Urine Ketones 2+ (Negative) H Urine Blood 2+ /uL (Negative) H Urine Nitrite Negative (Negative) Urine Bilirubin 1+ (Negative) Urine Urobilinogen 12 mg/dL (Negative) H Urine Leukocyte Esterase Negative /uL (Negative) Urine RBC <1 /hpf (0 - 3) Urine Microscopic WBC 2 /HPF (0-3) Urine Squamous Epithelial Cells Few /hpf (<5) Urine Bacteria None seen /hpf (None Seen) Urine Mucus Few (None Seen) Urine Glucose Normal mg/dL (Normal) Microbiology Microbiology Date/Time Source Procedure Growth Status 09/30/25 03:04 Blood Blood Culture - Preliminary NO GROWTH AFTER 24 HOURS OF INCUBATION. Resulted 09/29/25 23:50 Voided Urine Urine Culture - Preliminary Resulted Labs and/or images reviewed: Labs reviewed by me Assessment/Plan Assessment/Plan Alcohol intoxication Alcohol withdrawal Sepsis due to unknown origin Afib with RVR secondary to alcohol withdrawal Hypokalemia Hypomagnesemia Continue current management. Continue IV cefepim. Will follow up culture. Continue Vit B1, Folic acid, MVI Continue IVF Continue to replace electrolyte. Continue ativan. Continue metoprolol Continue librium Discharge planning. Plan discussed with: Patient Date of Service: Oct 01, 2025 Billing Provider: MADINA DUVALL MD Common Visit Codes: [id number] INP/OBS CARE(HIGH) MADINA DUVALL MD Oct 01, 2025 15:04
--- NOTE | 2025-10-01 21:46 | DVHPN2 ---
Consult Progress Note Subjective Patient reports: Feels better Other Systems: Patient was seen and evaluated in follow up. Overnight, the patient became agitated and restless. Patient reports loose stools. Telemetry reviewed consistent with sinus tachycardia at 102 beats per minute. Objective vital signs Vital Sign Date Time Temp Pulse Resp B/P (MAP) Pulse Ox O2 Delivery O2 Flow Rate FiO2 10/01/25 13:00 94 116/86 10/01/25 12:09 98.3 20 97 98.3 10/01/25 08:00 Room Air* 0 21 Total Intake and Output 09/30/25 09/30/25 10/01/25 15:00 23:00 07:00 Intake Total 550.0 ml 350.0 ml 290 ml Balance 550.0 ml 350.0 ml 290 ml medications Current Medications Medications Dose Ordered Sig/Zahraa Route Start Time Stop Time Status Last Admin Dose Admin Cefepime HCl 50 ml @ 12.5 mls/hr Q8HR IV 09/30/25 06:00 10/01/25 14:09 12.5 MLS/HR Ondansetron HCl 4 mg Q4HP PRN IV 09/30/25 03:15 10/01/25 08:42 4 MG Hydromorphone HCl 0.5 mg Q4HPRN PRN IV 09/30/25 03:15 Thiamine HCl 100 mg DAILY IV 09/30/25 10:00 10/01/25 10:27 100 MG Lorazepam 1 mg Q2H PRN IV 09/30/25 03:15 10/01/25 14:09 1 MG Folic Acid 1 mg DAILY PO 09/30/25 10:00 10/01/25 10:26 1 MG Chlordiazepoxide HCl 50 mg Q12HR PO 10/01/25 10:00 10/01/25 22:01 10/01/25 10:26 50 MG Chlordiazepoxide HCl 25 mg Q12HR PO 10/02/25 10:00 10/02/25 22:01 Chlordiazepoxide HCl 25 mg QAM PO 10/03/25 07:00 10/03/25 07:01 Metoprolol Tartrate 5 mg Q6HP IV 10/01/25 12:00 10/01/25 10:26 5 MG Examination: GENERAL:Normal, HEENT:Normal, NECK:Normal, LUNGS:Normal, CVS:Normal, ABDOMEN:Normal laboratory and microbiology Laboratory Tests 09/30/25 06:02 Test 09/30/25 06:02 Range/Units Serum Glucose 74 74-106 mg/dL Problem List/Assessment/Plan Problem List/Assessment/Plan Problem List Episode of atrial fibrillation with RVR. ETOH withdrawal, seizures. Sinus tachycardia. HTN. Sepsis. Elevated LFTs. Suspected sleep apnea. Plan/Recommendation Continued all current supportive medical care. Patient has been seen by Ahsan Cornejo NP on my behalf, him and I discussed the plan with the patient. Converted back to sinus tachycardia, likely episodic in setting of alcohol withdrawal. Monitoring replace electrolytes keep K greater than 4 and mg greater than 2. If recurrent decision to be made to started on anticoagulation therapy as patient has thrombocytopenia. On CIWA protocol. No further episodes of irregular arrhythmias on tele review overnight. IV metoprolol p.r.n.. BP stable. Normal EF on echo. No further cardiac workup indicated at this time, we will continue monitoring as needed. Additional plan as per the hospital course. Plan discussed with: Patient Date of Service: Oct 01, 2025 Billing Provider: HALEY SAMPSON MD Common Visit Codes: [id number] INP/OBS CARE(HIGH) HALEY SAMPSON MD Oct 01, 2025 15:03
[2025-10-02 00:38] VITALS: BP 126/80; PULSE 98; RESP 20; TEMP 98.9; O2SAT 97
[2025-10-02 04:48] VITALS: BP 111/87; PULSE 91; RESP 21; TEMP 98.3; O2SAT 96
[2025-10-02 06:28] LABS: Anion Gap 18 (5-15); Calcium 8.8 mg/dL (8.7-10.4); Carbon Dioxide 21 mmol/L (20-31)
[2025-10-02 06:29] LABS: Chloride 96 mmol/L (98-107); Potassium 3.1 mmol/L (3.5-5.1); Sodium 135 mmol/L (136-145)
[2025-10-02 06:34] LABS: BUN/Creatinine Ratio 5.8 (10.0-20.0)
[2025-10-02 06:40] LABS: Hematocrit 32.5 % (41.0-53.0); Hemoglobin 11.2 g/dL (13.5-17.5); Mean Corpuscular Hemoglobin 32.2 pg (28.0-32.0); Mean Corpuscular Volume 93.5 fL (80.0-100.0); Nucleated Red Blood Cells % 0.5 %
[2025-10-02 06:41] LABS: Blood Urea Nitrogen 6 mg/dL (9-23); Glucose 73 mg/dL (74-106)
[2025-10-02 07:30] VITALS: RESP 20
[2025-10-02 08:00] VITALS: PULSE 81
[2025-10-02 09:00] VITALS: BP 125/86; PULSE 100; RESP 20; TEMP 98.4; O2SAT 96
[2025-10-02] MEDS ORDERED: CHL10C PO (11:53)
--- NOTE | 2025-10-02 11:55 | DVHDS2 ---
Discharge Summary Date of Admission Sep 30, 2025 at 03:08 Date of Discharge: Oct 02, 2025 Admitting Diagnosis Alcohol intoxication Alcohol withdrawal Sepsis due to unknown origin Afib with RVR secondary to alcohol withdrawal Hypokalemia Hypomagnesemia Labs/Diagnostic Data: Laboratory Results Test 10/02/25 05:15 09/30/25 08:42 09/30/25 06:02 09/29/25 23:59 White Blood Count 3.6 10^3/uL (4.4-10.8) Red Blood Count 3.48 10^6/uL (4.5-5.90) Hemoglobin 11.2 g/dL (13.5-17.5) Hematocrit 32.5 % (41.0-53.0) Mean Corpuscular Volume 93.5 fL (80.0-100.0) Mean Corpuscular Hemoglobin 32.2 pg (28.0-32.0) Mean Corpuscular Hemoglobin Concent 34.5 g/dL (32.0-36.0) Red Cell Distribution Width 17.0 % (11.8-14.3) Platelet Count 83 10^3/uL (140-450) Mean Platelet Volume 9.1 fL (6.9-10.8) Neutrophils (%) (Auto) 61.2 % (37.0-80.0) Lymphocytes (%) (Auto) 21.1 % (10.0-50.0) Monocytes (%) (Auto) 11.9 % (0.0-12.0) Eosinophils (%) (Auto) 4.6 % (0.0-7.0) Basophils (%) (Auto) 1.2 % (0.0-2.0) Neutrophils # (Auto) 2.2 10 ^3/uL (1.6-8.6) Lymphocytes # (Auto) 0.8 10 ^3/uL (0.4-5.4) Monocytes # (Auto) 0.4 10 ^3/uL (0-1.3) Eosinophils # (Auto) 0.2 10 ^3/uL (0-0.8) Basophils # (Auto) 0 10 ^3/uL (0-0.2) Nucleated Red Blood Cells 0.5 % Sodium Level 135 mmol/L (136-145) Potassium Level 3.1 mmol/L (3.5-5.1) Chloride Level 96 mmol/L (98-107) Carbon Dioxide Level 21 mmol/L (20-31) Anion Gap 18 (5-15) Blood Urea Nitrogen 6 mg/dL (9-23) Creatinine 1.03 mg/dL (0.700-1.30) Glomerular Filtration Rate Calc 92 mL/min (>90) BUN/Creatinine Ratio 5.8 (10.0-20.0) Serum Glucose 73 mg/dL (74-106) Calcium Level 8.8 mg/dL (8.7-10.4) Lactic Acid Level 4.5 mmol/L (0.4-2.0) Magnesium Level 1.5 mg/dL (1.6-2.6) Total Bilirubin 4.2 mg/dL (0.2-1.0) Direct Bilirubin 2.8 mg/dL (<0.3) Aspartate Amino Transferase (AST) 307 U/L (13-40) Alanine Aminotransferase (ALT) 88 U/L (7-40) Alkaline Phosphatase 127 U/L (46-116) Total Protein 6.9 g/dL (5.7-8.2) Albumin 3.6 g/dL (3.2-4.8) Plasma/Serum Blood Alcohol 250.6 mg/dL (<10) Test 09/29/25 23:50 09/29/25 16:58 Urine Color Dark-yellow (Yellow) Urine Clarity Clear (Clear) Urine pH 6.0 (5.0-9.0) Urine Specific [place] 1.025 (1.001-1.035) Urine Protein 2+ (Negative) Urine Ketones 2+ (Negative) Urine Blood 2+ /uL (Negative) Urine Nitrite Negative (Negative) Urine Bilirubin 1+ (Negative) Urine Urobilinogen 12 mg/dL (Negative) Urine Leukocyte Esterase Negative /uL (Negative) Urine RBC <1 /hpf (0 - 3) Urine Microscopic WBC 2 /HPF (0-3) Urine Squamous Epithelial Cells Few /hpf (<5) Urine Bacteria None seen /hpf (None Seen) Urine Mucus Few (None Seen) Urine Glucose Normal mg/dL (Normal) Urine Opiates Screen Neg (NEGATIVE) Urine Fentanyl Screen Neg (NEGATIVE) Urine Barbiturates Screen Neg (NEGATIVE) Urine Phencyclidine Screen Neg (NEGATIVE) Urine Amphetamines Screen Neg (NEGATIVE) Urine Benzodiazepines Screen Neg (NEGATIVE) Urine Cocaine Screen Neg (NEGATIVE) Urine Cannabinoids Screen Neg (NEGATIVE) B-Type Natriuretic Peptide 11.38 pg/mL (0-100) Other Laboratory Tests 10/02/25 05:15 Brief Hx & Hospital Course: 45 years old male with past medical history of alcohol abuse and alcohol withdrawal seizure come to emergency department because of alcohol withdrawal. The patient had history of heavy alcohol abuse for 20 years. He recently quit drinking about 14 months for two months prior to this admission, followed by a divorce, he resume alcohol consumption. Patient is a resident of an alcohol rehab facility facility. Facility staff called after the patient experienced sudden onset of seizure-like activity lasting approximately 45-60 seconds following comes him some of one shot of alcohol which was given as a part of a tapering regimen. On scene the patient reports remained postictal for three 4 minutes before he regained any consciousness and returned to baseline. The patient was admitted. The patient was given banana bag. The patient's electrolyte was replaced. The patient was given Librium as needed for alcohol withdrawal. The patient also received cefepime IV Q eight as a prophylactic treatment for aspirin pneumonia. The patient doing better. No fever, no chill. No seizure activity. No withdrawal symptoms. So I am going to discharge the patient home today. Advised the patient to follow up with primary care physician 1-2 weeks. Follow up with psychiatrist per schedule. Continuing the rehab from alcohol abuse per schedule. Physical exam: HEENT: Normocephalic atraumatic pupils equal react to light and accommodation. Extraocular muscles intact, conjunctiva pink, oropharynx moist, no thrush, no exudate. Lymphatic: No lymphadenopathy Cardiovascular exam: S1, S2 was heard. No murmurs, rubs, gallops Lung: Clear on auscultation bilaterally, no wheeze, rale, rhonchi. GI: Abdominal soft, nondistended, nontenderness, positive bowel sounds. Extremity: No crepitus, cyanosis, edema. Pedal pulses present bilateral. Full range of motion. Skin: Normal turgor, no rash. Psych: Alert, oriented x3. Neurology: No focal deficits, cranial nerve II to XII grossly intact. This medical document was created using an electronic medical record system with [employer] direct computerized dictation system. Although this document has been carefully reviewed, there may still be some phonetic and typographical errors. These areas are purely typographical due to imperfections of the software programs, and do not reflect any compromise in the patient's medical care. Condition at Discharge: Stable Final Diagnosis/Problems List Alcohol intoxication Alcohol withdrawal Sepsis due to unknown origin Afib with RVR secondary to alcohol withdrawal Hypokalemia Hypomagnesemia Discharge Disposition: Home Discharge Instruct/Medications Diet: Regular Activity: No Restrictions, As Tolerated Follow Up/Referral: pcp 1-2 weeks Medications: see med list Scheduled Chlordiazepoxide Hcl (Ni-1) (I (Librium), 10 MG PO BID Discharge Statement: "Patient was advised to return to the ER or call 911 if any headaches, dizziness, shortness of breath, chest pain, abdominal pain, bleeding, fevers, or worsening of medical condition. Patient was counseled about treatment plan, medications, possible side effects, patientverbalized understanding. All questions were answered to the best of my ability. This discharge took greater then 30 minutes in planning, reviewing documentation, counseling the patient, and discussing with other team members." ASSESSMENT ASSESSMENT Assessment alcohol withdrawal Date of Service: Oct 02, 2025 Billing Provider: MADINA DUVALL MD Common Visit Codes: 37569-ICH/OBS DISCH DAY >30min MADINA DUVALL MD Oct 02, 2025 11:55
[2025-10-02 13:00] VITALS: BP 139/90; PULSE 85; RESP 20; TEMP 98.5; O2SAT 96
[2025-10-02] MEDS: POTASSIUM CHL 20 Meq TABLET PO ONE (16:14)
--- NOTE | 2025-10-03 00:23 | DVHPN2 ---
Progress Note - Dictate Date Seen: Oct 02, 2025 Medical Necessity Reason Pt with a Central, PICC or Fol: No Subjective Patient was seen and evaluated in follow up. Patient has no new complaints at this time. Patient denies any cardiac symptoms. Patient is cardiac stable for discharge. Telemetry reviewed. vital signs Vital Sign Date Time Temp Pulse Resp B/P (MAP) Pulse Ox O2 Delivery O2 Flow Rate FiO2 10/02/25 14:15 89 134/88 10/02/25 13:00 98.5 20 96 98.5 10/02/25 07:30 Room Air* 0 21 objective GENERAL: Alert and oriented x 3. No acute distress. EYES: PERRL, EOMI. Anicteric. HENT: Moist mucous membranes. LUNGS: Clear to auscultation bilaterally. CARDIOVASCULAR: Regular rate and rhythm. ABDOMEN: Soft, non-tender and non-distended. EXTREMITIES: No edema. NEUROLOGIC: No focal neurological deficits. SKIN: Warm, dry. laboratory and microbiology Laboratory Tests 10/02/25 05:15 Test 10/02/25 05:15 Range/Units Serum Glucose 73 L 74-106 mg/dL Problem List Episode of atrial fibrillation with RVR. ETOH withdrawal, seizures. Sinus tachycardia. HTN. Sepsis. Elevated LFTs. Suspected sleep apnea. Assessment/Plan Continued all current supportive medical care. Monitoring replace electrolytes keep K greater than 4 and mg greater than 2. If recurrent decision to be made to started on anticoagulation therapy as patient has thrombocytopenia. On CIWA protocol. No further episodes of irregular arrhythmias on tele review overnight. IV metoprolol p.r.n. BP stable. Normal EF on echo. Additional plan as per the hospital course. Plan discussed with: Patient HALEY SAMPSON MD Oct 03, 2025 00:23
== END 2025-10-02 17:20 | disposition home or self-care (01) | DRG 816 ==
LOC: ER 16:33 → EDBD 16:33 → OVERFLOW 09-30 03:08 → CENTRAL 09-30 18:03 → TELE-CENTR 09-30 23:55
PROVIDERS: ADMIT Internal Medicine; ATTEND Internal Medicine
DX: T51.0X1A Toxic effect of ethanol, accidental (unintentional), initial encounter (principal); A41.9 Sepsis, unspecified organism; E87.20 Acidosis, unspecified; D69.6 Thrombocytopenia, unspecified; R56.9 Unspecified convulsions; Z79.01 Long term (current) use of anticoagulants; E66.01 Morbid (severe) obesity due to excess calories; F10.120 Alcohol abuse with intoxication, uncomplicated; I10 Essential (primary) hypertension; I48.91 Unspecified atrial fibrillation; F10.130 Alcohol abuse with withdrawal, uncomplicated; E83.42 Hypomagnesemia; E87.6 Hypokalemia; R79.89 Other specified abnormal findings of blood chemistry; Y90.8 Blood alcohol level of 240 mg/100 ml or more; Z63.5 Disruption of family by separation and divorce; Z68.41 Body mass index [BMI] 40.0-44.9, adult; Y92.89 Other specified places as the place of occurrence of the external cause
CPT/HCPCS: 36415; 71045; 80048; 80053; 80076; 80307; 80320; 81001; 83605; 83735; 83880; 85025; 87040; 87086; 93005; 93306; 96361; 96365; 96375; G0378; J2405